=== PATIENT | female | born 1965 | race Caucasian/White ===

== ENCOUNTER 2017-01-22 04:53 | Inpatient (IN) ==
[2017-01-19 17:08] LABS: Appearance,Urine HAZY; Bacteria,Urine 0 /hpf (0); Bilirubin,Urine NEG (NEG); Color,Urine YELLOW; Glucose,Urine (UA) NEGATIVE (NEG); Ictotest,Urine NEG (NEG); Leukocyte Esterase,Urine NEG /uL (NEG); Mucus,Urine MANY /hpf (0); Nitrate,Urine NEG (NEG); Protein,Urine 30 mg/dL (NEG); Specific Gravity,Urine 1.036 (1.000-1.035); Urine Blood NEG mg/dL (<0.03); Urine Hyaline Cast 1 /lpf (0-2); Urine RBC 1 /hpf (0-1); Urine Squamous Epithelial Cell 2 /hpf (0-4); Urine WBC 1 /hpf (0-4); Urobilinogen,Urine NEG (NEG)
[2017-01-19 17:11] LABS: Basophils # (Auto) 0.1 K/mcL (0.0-0.3); Basophils % (Auto) 0.5 % (0.0-2.0); Eosinophils # (Auto) 0.2 K/mcL (0.0-0.7); Eosinophils % (Auto) 1.8 % (0.0-7.0); Granulocytes % (Auto) 74.8 % (38.0-78.0); Lymphocytes % (Auto) 17.5 % (15.5-49.0); Mean Cell Volume 90.9 fL (80.0-100.0); Mean Corpuscular HGB Conc 32.8 g/dL (31.0-36.0); Mean Corpuscular Hemoglobin 29.8 pg (26.0-34.0); Monocytes # (Auto) 0.6 K/mcL (0.1-0.9); Monocytes % (Auto) 5.4 % (1.0-12.0); Platelet Count 263 K/mcL (140-440); RBC 4.15 M/mcL (4.00-5.20); Red Cell Distribution Width 13.3 % (11.5-14.5)
[2017-01-19 17:24] LABS: Blood Urea Nitrogen 10 mg/dl (6-20)
[2017-01-22] MEDS ORDERED: ceFAZolin 1 GM VIAL IV SCH (06:00)
[2017-01-22] MEDS ORDERED: TRANEXAMIC ACID 1,000 MG/10 ML VIAL IV ONE (07:30)
[2017-01-22] MEDS ORDERED: ROPIVACAINE HCL/PF 30 ML VIAL IJ ONE (07:30)
[2017-01-22] MEDS ORDERED: LIDOCAINE HCL/PF 100 MG/5 ML SYRINGE IV ONE (07:30)
[2017-01-22] MEDS ORDERED: DEXAMETHASONE 10 MG/ML VIAL IV ONE (07:30)
[2017-01-22] MEDS ORDERED: MIDAZOLAM 5 MG/5 ML VIAL IV ONE (07:30)
[2017-01-22] MEDS ORDERED: ONDANSETRON 4 MG/2 ML VIAL IV ONE (07:30)
[2017-01-22] MEDS ORDERED: PROPOFOL 200 MG/20 ML VIAL IV ONE (07:30)
[2017-01-22] MEDS ORDERED: GENTAMICIN SULFATE 800 MG/20 ML VIAL IR ONE (07:51)
[2017-01-22] MEDS ORDERED: KETOROLAC 30 MG, ROPIVACAINE HCL/PF 49.5 ML, EPINEPHrine 0.5 MG, 0.9 % SODIUM CHLORIDE ... IJ ONE (08:00)
[2017-01-22] MEDS ORDERED: diphenhydrAMINE 50 MG/ML VIAL IV PRN (08:55)
[2017-01-22] MEDS ORDERED: PROMETHAZINE 25 MG/ML VIAL IV PRN (08:55)
[2017-01-22] MEDS ORDERED: HYDROmorphone 2 MG/ML SYRINGE IV PRN (08:55)
[2017-01-22] MEDS ORDERED: ONDANSETRON 4 MG/2 ML VIAL IV PRN (08:55)
[2017-01-22] MEDS ORDERED: FLUMAZENIL 0.1 MG/ML ML IV PRN (08:55)
[2017-01-22] MEDS ORDERED: BENZOCAINE/MENTHOL 1 LOZENGE PO PRN ×2 (08:55→09:26)
[2017-01-22] MEDS ORDERED: NALOXONE HCL 0.4 MG/ML VIAL IV PRN (08:55)
[2017-01-22] MEDS ORDERED: IPRATROPIUM/ALBUTEROL 3 ML AMPUL.NEB NEB PRN (08:55)
[2017-01-22] MEDS ORDERED: METHOCARBAMOL 1,000 MG/10 ML VIAL IV PRN ×2 (08:55→09:26)
[2017-01-22] MEDS ORDERED: MEPERIDINE 25 MG/ML SYRINGE IV PRN (08:55)
[2017-01-22] MEDS ORDERED: LACTATED RINGERS 250 ML IV PRN (08:55)
[2017-01-22] MEDS ORDERED: LACTATED RINGERS 1,000 ML IV SCH (09:00)
[2017-01-22] MEDS ORDERED: FLEETS ADULT ENEMA PR PRN (09:26)
[2017-01-22] MEDS ORDERED: TRANEXAMIC ACID 1,000 MG/10 ML VIAL IV SCH (09:26)
[2017-01-22] MEDS ORDERED: BISACODYL 10 MG SUPP.RECT PR PRN (09:26)
[2017-01-22] MEDS ORDERED: POLYETHYLENE GLYCOL 3350 17 GM PACKET PO PRN (09:26)
[2017-01-22] MEDS ORDERED: MAGNESIUM HYDROXIDE 30 ML ORAL.SUSP PO PRN (09:26)
--- NOTE | 2017-01-22 09:27 | Brief Operative Note ---
Date of procedure: 01/22/17 Pre-op diagnosis: djd r knee Post-op diagnosis: same Procedure: R TKR Grafts/Implants: Yes (Pawel LYNN (aescumary jane)) Anesthesia: GETA Complications: none Surgeon: Toni Penaloza Fishing Game Warden: Filipe Coleman Estimated blood loss (cc): 250 Tourniquet Time (Minutes): 26 Specimens Removed/Pathology: none sent Condition: stable Disposition: PACU
[2017-01-22] MEDS ORDERED: FLUTICASONE PROPIONATE SPRAY.NAS NS PRN (09:30)
[2017-01-22] MEDS: fentaNYL 100 MCG/2 ML VIAL IV PRN ×4 (09:55→10:22)
--- NOTE | 2017-01-22 10:18 | XRay Report ---
HISTORY: Reason for Exam:Post-op total knee. FINDINGS: There is satisfactory placement of the total knee prosthesis. The articular surface of the tibial plateau prosthesis is angled 6 degrees off of the long axis of the tibia. [place] of the patella shows a small cluster of bone fragments lateral to the patella. There is no other evidence of a fracture. IMPRESSION: Satisfactory placement of the knee prosthesis Interpreted and Authenticated by: Joesph Fleming 01/22/17
--- NOTE | 2017-01-22 10:27 | Operative Note ---
DATE OF OPERATION: 01/22/2017 PREOPERATIVE DIAGNOSIS: Degenerative joint disease of the right knee. POSTOPERATIVE DIAGNOSIS: Degenerative joint disease of the right knee. OPERATION: Right total knee replacement using the Aesculap Armas knee posterior stabilized. SURGEON: Toni Penaloza MD. ASSOCIATE PUBLISHER: Filipe Coleman PA-C. ANESTHESIA: General done by Clyde Meyers CRNA. ESTIMATED BLOOD LOSS: 250 mL. TOURNIQUET TIME: 26 minutes. SUMMARY OF PROCEDURE: General anesthesia and a spinal block were placed. The leg was prepped and draped. No tourniquet was used until cementing. A midline incision was made from the quadriceps to the tibial tubercle. This was taken down sharply. The quadriceps and medial retinaculum were split. The patella was mobilized laterally. An anterior release was done of the pes anserinus. The patella was mobilized laterally. The menisci were resected. The ACL was released. The intramedullary canal of the femur was drilled. The distal femoral cutting guide was placed. A 9 mm was resect. Resection was done. The patient did not have a flexion contracture. The femur was sized to a size 4. The anterior, posterior and bevel cuts were made. The tibia was subluxed forward with care being taken to protect the vital structures. Intramedullary canal of the tibia was opened. The canal was then reamed. The proximal tibial cutting guide was placed. The cut was adjusted to be 7 mm below the high point of the medial compartment. The cut was made. The tibia sized to a 2. The external rotation was adjusted to match the patient's. The guide system was used to make the metaphyseal flare cut as well. The patella was everted. It was 25 mm in thickness. Using a measuring device, we resected 10 mm down to a 14 to 15 mm patella in terms of bone thickness. The patella sized to a 35. The no-touch test showed a lateral release was not needed. Bone spurs around the patella were resected with a rongeur. The joint surfaces were copiously irrigated. The block cut was then made in the femur. This was done with the guide system resecting bone on both sides of the notch, as well as the posterior and mid aspect of the femur. A trial reduction was done. It showed excellent stability in mid flexion, flexion and extension with a 10 mm posterior stabilized component. The iliotibial band was checked at the time of closure and was felt to be tight. It was released from Gerdy's tubercle. Rechecking of the knee medial and lateral stability showed excellent stability. The joint surfaces were irrigated. The components were cemented in. This was done under tourniquet control. Excess cement was removed. Tourniquet time for the cementation was 26 minutes. The tourniquet was let down. All bleeding points that had not been coagulated already were coagulated. The quadriceps was closed in two layers using buried #2 FiberWire simple sutures and then a running locking mattresses of 0 [place]. The subcutaneous tissue was closed with interrupted 2-0 FiberWire. The skin was closed meticulously with Dermabond and a sterile compressive dressing was applied. The patient awoke without difficulty. She was taken to the recovery room in stable condition. The sponge and needle count was correct. TJF:[email or web address] Job ID: [id number] Doc ID: [id number] Toni Penaloza MD
[2017-01-22] MEDS: 0.9 % SODIUM CHLORIDE 1,000 ML IV SCH ×2 (11:00→20:41)
[2017-01-22] MEDS: ONDANSETRON 4 MG/2 ML VIAL IV PRN ×2 (11:19→17:02)
[2017-01-22] MEDS: 0.9 % SODIUM CHLORIDE 10 ML SYRINGE IV SCH ×2 (13:07→22:07)
[2017-01-22] MEDS: ceFAZolin 1 GM VIAL IV SCH (15:05)
[2017-01-22] MEDS: HYDROcodone/APAP 10/325MG TABLET PO PRN ×2 (15:05→20:38)
[2017-01-22] MEDS: DOCUSATE SODIUM 100 MG CAPSULE PO SCH (20:37)
[2017-01-22] MEDS: SENNOSIDES 1 TABLET PO SCH (20:37)
[2017-01-22] MEDS: NORTRIPTYLINE 25 MG CAPSULE PO SCH (20:38)
[2017-01-22] MEDS: LISINOPRIL 10 MG TABLET PO SCH (20:38)
[2017-01-22] MEDS: ENOXAPARIN 30 MG/0.3 ML SYRINGE SQ SCH (20:39)
[2017-01-22] MEDS ORDERED: TEMAZEPAM 15 MG CAPSULE PO PRN (21:00)
[2017-01-23] MEDS: ceFAZolin 1 GM VIAL IV SCH (00:02)
[2017-01-23] MEDS: HYDROcodone/APAP 10/325MG TABLET PO PRN ×6 (00:08→20:29)
[2017-01-23 06:08] LABS: Basophils # (Auto) 0 K/mcL (0.0-0.3); Basophils % (Auto) 0.1 % (0.0-2.0); Eosinophils # (Auto) 0.2 K/mcL (0.0-0.7); Eosinophils % (Auto) 1.1 % (0.0-7.0); Granulocytes % (Auto) 87.5 % (38.0-78.0); Lymphocytes # (Auto) 1.1 K/mcL (1.5-4.8); Lymphocytes % (Auto) 6.1 % (15.5-49.0); Mean Cell Volume 91.4 fL (80.0-100.0); Mean Corpuscular HGB Conc 32.7 g/dL (31.0-36.0); Mean Corpuscular Hemoglobin 29.9 pg (26.0-34.0); Monocytes # (Auto) 0.9 K/mcL (0.1-0.9); Monocytes % (Auto) 5.2 % (1.0-12.0); Platelet Count 206 K/mcL (140-440); RBC 3.22 M/mcL (4.00-5.20); Red Cell Distribution Width 13.5 % (11.5-14.5)
[2017-01-23] MEDS: 0.9 % SODIUM CHLORIDE 10 ML SYRINGE IV SCH ×3 (06:26→20:34)
[2017-01-23] MEDS: VILANTEROL INH SCH (07:24)
[2017-01-23] MEDS: FLUTICASONE INH SCH (07:24)
--- NOTE | 2017-01-23 07:38 | Orthopedic Progress Note ---
Subjective Patient information: Note initiated : 01/23/17 at 7:36 am Service Date, if different from initiated Date: [] Patient: Liliam Blair 51 y/o F admitted on 01/22/17 for Right Total Knee Arthroplasty *!technician assistant!*. Chief Complaint: [] Principal diagnosis: r tkr yesterday Objective Vital signs: Vital Signs Temp Pulse Resp BP BP Pulse Ox 01/23/17 07:01 98.4 F 83 16 112/44 97 01/23/17 06:59 83 01/23/17 03:48 98.5 F 87 16 115/79 95 01/23/17 00:00 98.3 F 98 H 20 120/82 95 01/22/17 20:30 98.4 F 98 H 18 134/79 96 01/22/17 15:31 98.3 F 16 152/91 95 01/22/17 10:55 97.7 F 87 18 131/79 95 01/22/17 10:50 93 H 137/83 96 01/22/17 10:40 97.7 F 88 18 125/83 94 01/22/17 10:35 92 H 144/83 95 01/22/17 10:25 97.1 F L 98 H 16 123/78 96 01/22/17 10:20 87 122/81 95 01/22/17 09:45 99 H 16 136/76 95 01/22/17 09:33 97.1 F L 121 H 19 147/95 96 Intake and Output 01/22/17 01/23/17 01/23/17 21:59 05:59 13:59 Intake Total 1668 / 1668 400 / 400 Output Total 1001 / 1001 300 / 300 Balance 667 / 667 100 / 100 Intake: IV 968 / 968 Sodium Chloride 0.9% 1, 968 / 968 000 ml @ 100 mls/hr IV . Q10H IRIS Rx#:[id number] Oral 700 / 700 400 / 400 Output: Void Amount 1000 / 1000 300 / 300 # of times incontinent of 1 / 1 urine Other: Meal Dinner Nourishment/Supplement Percent of Meal Consumed 25% 100% # Voids 1 1 Weight 235 lb Intake & Output: Intake & Output 01/22/17 01/23/17 01/23/17 21:59 05:59 13:59 Intake Total 1668 / 1668 400 / 400 Output Total 1001 / 1001 300 / 300 Balance 667 / 667 100 / 100 Weight 235 lb Intake: IV 968 / 968 Sodium Chloride 0.9% 1, 968 / 968 000 ml @ 100 mls/hr IV . Q10H IRIS Rx#:[id number] Oral 700 / 700 400 / 400 Output: Void Amount 1000 / 1000 300 / 300 # of times incontinent of / urine Other: Meal Dinner Nourishment/Supplement Percent of Meal Consumed 25% 100% # Voids 1 1 Dressing: Yes clean, Yes dry, Yes intact Weight bearing status: as tolerated Neurological exam IM: Yes motor sensory intact Extremities exam IM: Yes normal capillary refill, Yes Foot pink and warm, Yes neurovascular intact - Diagnostic Results Knee x-ray: image reviewed - Labs CBC & BMP: 01/23/17 04:40 01/19/17 14:34 Labs: 01/23/17 01/19/17 04:40 14:34 Hgb 9.6 L 12.4 Hct 29.5 L 37.7 Assessment and Plan (1) Arthritis of right knee encouraged CPM; continue PT and lovenox Status: Chronic
[2017-01-23] MEDS: ONDANSETRON 4 MG/2 ML VIAL IV PRN ×2 (09:03→21:22)
[2017-01-23] MEDS: VITAMIN B COMPLEX 1 CAPSULE PO SCH (09:05)
[2017-01-23] MEDS: VITAMIN D3 1,000 UNIT TABLET PO SCH (09:05)
[2017-01-23] MEDS: LACTOBACILLUS 1 CAPSULE PO SCH (09:05)
[2017-01-23] MEDS: DOCUSATE SODIUM 100 MG CAPSULE PO SCH ×2 (09:05→20:29)
[2017-01-23] MEDS: ENOXAPARIN 30 MG/0.3 ML SYRINGE SQ SCH ×2 (09:05→20:27)
[2017-01-23] MEDS: 0.9 % SODIUM CHLORIDE 1,000 ML IV SCH (09:06)
[2017-01-23] MEDS: NORTRIPTYLINE 25 MG CAPSULE PO SCH (20:27)
[2017-01-23] MEDS: LISINOPRIL 10 MG TABLET PO SCH (20:29)
[2017-01-23] MEDS: SENNOSIDES 1 TABLET PO SCH (20:29)
[2017-01-24] MEDS: HYDROcodone/APAP 10/325MG TABLET PO PRN ×3 (00:33→09:23)
[2017-01-24] MEDS: 0.9 % SODIUM CHLORIDE 10 ML SYRINGE IV SCH ×3 (06:11→21:52)
[2017-01-24] MEDS: ONDANSETRON 4 MG/2 ML VIAL IV PRN ×2 (08:29→21:42)
[2017-01-24] MEDS: ENOXAPARIN 30 MG/0.3 ML SYRINGE SQ SCH ×2 (08:43→21:41)
[2017-01-24] MEDS: VITAMIN B COMPLEX 1 CAPSULE PO SCH (09:27)
[2017-01-24] MEDS: VILANTEROL INH SCH (09:28)
[2017-01-24] MEDS: FLUTICASONE INH SCH (09:28)
[2017-01-24] MEDS: DOCUSATE SODIUM 100 MG CAPSULE PO SCH ×2 (09:28→21:41)
[2017-01-24] MEDS: VITAMIN D3 1,000 UNIT TABLET PO SCH (09:28)
[2017-01-24] MEDS: LACTOBACILLUS 1 CAPSULE PO SCH (09:28)
[2017-01-24] MEDS ORDERED: METOCLOPRAMIDE 10 MG/2 ML VIAL IV ONE (10:11)
[2017-01-24] MEDS ORDERED: METOCLOPRAMIDE 10 MG/2 ML VIAL ONE (10:13)
--- NOTE | 2017-01-24 10:17 | Orthopedic Progress Note ---
Subjective Patient information: Note initiated : 01/24/17 at 10:15 am Service Date, if different from initiated Date: [] Patient: Liliam Blair 51 y/o F admitted on 01/22/17 for Right Total Knee Arthroplasty *!parole officer!*. Chief Complaint: [] Principal diagnosis: r tkr 01/22 Interval history: Nausea and vomiting this am. didn't respond to Zofran Objective Vital signs: Vital Signs Temp Pulse Resp BP BP BP Pulse Ox 01/24/17 07:05 98.0 F 20 116/69 91 01/24/17 04:00 98.8 F 94 H 16 124/83 97 01/24/17 00:00 99.0 F 101 H 16 135/80 94 01/23/17 18:58 97.9 F 85 18 110/72 95 01/23/17 16:23 98.9 F 16 124/79 99 01/23/17 12:00 98.1 F 94 H 16 148/88 98 Intake and Output 01/23/17 01/24/17 01/24/17 21:59 05:59 13:59 Intake Total 810 / 810 480 / 480 360 / 360 Output Total 425 / 425 550 / 550 500 / 500 Balance 385 / 385 -70 / -70 -140 / -140 Intake: Oral 810 / 810 480 / 480 360 / 360 Output: Void Amount 425 / 425 550 / 550 500 / 500 Other: Meal Dinner 1 Jello cup & 1 fruit cup with pain medication Percent of Meal Consumed 100% 100% Feeding Ability Independent Independent # Voids 1 1 1 Weight 236 lb 8 oz Intake & Output: Intake & Output 01/23/17 01/24/17 01/24/17 21:59 05:59 13:59 Intake Total 810 / 810 480 / 480 360 / 360 Output Total 425 / 425 550 / 550 500 / 500 Balance 385 / 385 -70 / -70 -140 / -140 Weight 236 lb 8 oz Intake: Oral 810 / 810 480 / 480 360 / 360 Output: Void Amount 425 / 425 550 / 550 500 / 500 Other: Meal Dinner 1 Jello cup & 1 fruit cup with pain medication Percent of Meal Consumed 100% 100% Feeding Ability Independent Independent # Voids 1 1 1 Dressing: Yes clean, Yes dry, Yes intact Weight bearing status: full Extremities exam IM: Yes normal inspection, Yes Foot pink and warm - Labs CBC & BMP: 01/23/17 04:40 01/19/17 14:34 Labs: 01/23/17 01/19/17 04:40 14:34 Hgb 9.6 L 12.4 Hct 29.5 L 37.7 Assessment and Plan (1) Arthritis of right knee encouraged CPM; continue PT and lovenox Status: Chronic
[2017-01-24] MEDS ORDERED: PROMETHAZINE 25 MG TABLET PO PRN (10:34)
[2017-01-24] MEDS: PROMETHAZINE 25 MG TABLET PO PRN (12:56)
[2017-01-24] MEDS: oxyCODONE/APAP 10/325MG TABLET PO PRN ×3 (12:56→21:41)
[2017-01-24] MEDS: METOCLOPRAMIDE 10 MG/2 ML VIAL IV PRN (17:34)
[2017-01-24] MEDS: SENNOSIDES 1 TABLET PO SCH (21:40)
[2017-01-24] MEDS: NORTRIPTYLINE 25 MG CAPSULE PO SCH (21:40)
[2017-01-24] MEDS: LISINOPRIL 10 MG TABLET PO SCH (21:40)
[2017-01-25] MEDS: METOCLOPRAMIDE 10 MG/2 ML VIAL IV PRN (01:50)
[2017-01-25] MEDS: oxyCODONE/APAP 10/325MG TABLET PO PRN ×4 (01:50→13:41)
[2017-01-25] MEDS: ONDANSETRON 4 MG/2 ML VIAL IV PRN ×2 (05:51→09:56)
[2017-01-25] MEDS: 0.9 % SODIUM CHLORIDE 10 ML SYRINGE IV SCH (05:52)
[2017-01-25 06:24] LABS: Basophils # (Auto) 0 K/mcL (0.0-0.3); Basophils % (Auto) 0.5 % (0.0-2.0); Eosinophils # (Auto) 0.2 K/mcL (0.0-0.7); Eosinophils % (Auto) 1.7 % (0.0-7.0); Granulocytes % (Auto) 73.6 % (38.0-78.0); Lymphocytes # (Auto) 1.6 K/mcL (1.5-4.8); Lymphocytes % (Auto) 16.2 % (15.5-49.0); Mean Cell Volume 91.8 fL (80.0-100.0); Mean Corpuscular HGB Conc 32.8 g/dL (31.0-36.0); Mean Corpuscular Hemoglobin 30.1 pg (26.0-34.0); Monocytes # (Auto) 0.8 K/mcL (0.1-0.9); Platelet Count 218 K/mcL (140-440); RBC 3.18 M/mcL (4.00-5.20)
[2017-01-25] MEDS: ENOXAPARIN 30 MG/0.3 ML SYRINGE SQ SCH (08:25)
[2017-01-25] MEDS: VITAMIN B COMPLEX 1 CAPSULE PO SCH (08:25)
[2017-01-25] MEDS: LACTOBACILLUS 1 CAPSULE PO SCH (08:25)
[2017-01-25] MEDS: VITAMIN D3 1,000 UNIT TABLET PO SCH (08:25)
[2017-01-25] MEDS: VILANTEROL INH SCH (08:26)
[2017-01-25] MEDS: FLUTICASONE INH SCH (08:26)
[2017-01-25] MEDS: DOCUSATE SODIUM 100 MG CAPSULE PO SCH (08:31)
[2017-01-25] MEDS ORDERED: SCOPOLAMINE 1 PATCH PATCH TOPICAL ONE (10:04)
--- NOTE | 2017-01-25 10:08 | Orthopedic Progress Note ---
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 Chief Complaint: [] no complaints nausea resolved Principal diagnosis: r tkr 01/22 Objective Vital signs: Vital Signs Temp Pulse Resp BP BP BP Pulse Ox 01/25/17 06:33 98.6 F 18 145/78 93 01/25/17 03:28 98.3 F 101 H 18 133/81 91 01/24/17 23:38 98.8 F 98 H 16 133/81 97 01/24/17 20:00 98.5 F 118 H 16 136/63 95 01/24/17 18:00 99.7 F H 18 145/79 96 01/24/17 16:00 99.4 F 20 162/84 98 01/24/17 11:41 98.6 F 16 127/75 97 Intake and Output 01/24/17 01/25/17 01/25/17 21:59 05:59 13:59 Intake Total 480 / 480 600 / 600 480 / 480 Output Total 1350 / 1350 950 / 950 900 / 900 Balance -870 / -870 -350 / -350 -420 / -420 Intake: Oral 480 / 480 600 / 600 480 / 480 Output: Void Amount 1350 / 1350 950 / 950 900 / 900 Other: Meal 2 applesauce cups with pain medication Breakfast Percent of Meal Consumed 100% 100% # Voids 1 Weight 236 lb Intake & Output: Intake & Output 01/24/17 01/25/17 01/25/17 21:59 05:59 13:59 Intake Total 480 / 480 600 / 600 480 / 480 Output Total 1350 / 1350 950 / 950 900 / 900 Balance -870 / -870 -350 / -350 -420 / -420 Weight 236 lb Intake: Oral 480 / 480 600 / 600 480 / 480 Output: Void Amount 1350 / 1350 950 / 950 900 / 900 Other: Meal 2 applesauce cups with pain medication Breakfast Percent of Meal Consumed 100% 100% # Voids 1 Dressing: Yes intact Neurological exam IM: Yes neurovascular intact - Labs CBC & BMP: 01/25/17 05:22 01/19/17 14:34 Labs: 01/25/17 01/23/17 01/19/17 05:22 04:40 14:34 Hgb 9.6 L 9.6 L 12.4 Hct 29.1 L 29.5 L 37.7
[2017-01-25] MEDS ORDERED: PNEUMOCOCCAL 23-VAL P-SAC VAC 0.5 ML VIAL IM ONE (13:30)
[2017-01-25] MEDS: PROMETHAZINE 25 MG TABLET PO PRN (13:41)
== END 2017-01-25 13:50 | disposition home or self-care (01) | DRG 470 ==
LOC: MEDSUR 04:53
PROVIDERS: ADMIT Orthopaedic Surgery Foot and Ankle Surgery; ATTEND Orthopaedic Surgery Foot and Ankle Surgery